=== PATIENT | male | born 1970 | race Hispanic/Latino ===

== ENCOUNTER 2017-07-25 04:30 | Inpatient (IN) | payer BC ==
--- NOTE | 2017-07-25 04:59 | ED PDOC ---
Arrival/HPI - General Chief Complaint: Shortness Of Breath Time Seen by Provider: 07/25/17 04:50 Historian: Patient - History of Present Illness Narrative History of Present Illness (Text): 07/25/17 04:59 46 year old male, whose past medical history includes Hypertension presents to the emergency department complaining of chest tightness for the past day. Patient reports he was diaphoretic at one point during the day and also reports occasional palpitations. Patient is a non-smoker and denies any drug use, but admits to chewing tobacco. He states he does have a family history of heart disease. Patient denies any fever, chills, shortness of breath, abdominal pain, nausea, vomiting, diarrhea, urinary symptoms, back pain, neck pain, headache, dizziness, or any other complaints. Time/Duration: 24 hours Symptom Onset: Gradual Symptom Course: Unchanged Activities at Onset: Light Context: Home Past Medical History - Provider Review Nursing Documentation Reviewed: Yes - Cardiac Hx Cardiac Disorders: Yes Hx Hypertension: Yes - Psychiatric Hx Substance Use: No - Surgical History Other/Comment: screws in LLE Family/Social History - Physician Review Nursing Documentation Reviewed: Yes Family/Social History: Other (Heart Disease ) Smoking Status: Never Smoked Hx Alcohol Use: Yes Frequency of alcohol use: Socially Hx Substance Use: No Allergies/Home Meds Allergies/Adverse Reactions: Allergies cat dander Adverse Reaction (Verified 07/25/17 04:41) ITCHING Review of Systems - Physician Review All systems were reviewed & negative as marked: Yes - Review of Systems Constitutional: absent: Fevers, Other (Chills) Respiratory: absent: SOB Cardiovascular: Palpitations, Other (Chest tightness) Gastrointestinal: absent: Abdominal Pain, Diarrhea, Nausea, Vomiting Genitourinary Male: absent: Dysuria, Frequency, Hematuria Musculoskeletal: absent: Back Pain, Neck Pain Neurological: absent: Headache, Dizziness Endocrine: Diaphoresis Physical Exam Vital Signs Reviewed: Yes Vital Signs Temp Pulse Resp BP Pulse Ox 07/25/17 04:50 18 07/25/17 04:41 99.6 F 99 H 22 187/117 H 97 Temperature: Afebrile Blood Pressure: Hypertensive Pulse: Regular Respiratory Rate: Normal Appearance: Positive for: Well-Appearing, Non-Toxic, Comfortable, Other (Obese ) Pain Distress: None Mental Status: Positive for: Alert and Oriented X 3 - Systems Exam Head: Present: Atraumatic, Normocephalic Pupils: Present: PERRL Extroacular Muscles: Present: EOMI Conjunctiva: Present: Normal Mouth: Present: Moist Mucous Membranes Neck: Present: Normal Range of Motion, Other (Supple) Respiratory/Chest: Present: Clear to Auscultation, Good Air Exchange. No: Respiratory Distress, Accessory Muscle Use Cardiovascular: Present: Regular Rate and Rhythm, Normal S1, S2. No: Murmurs Abdomen: No: Tenderness, Distention, Peritoneal Signs Back: Present: Normal Inspection Upper Extremity: Present: Normal Inspection. No: Cyanosis, Edema Lower Extremity: Present: Normal Inspection. No: Edema, CALF TENDERNESS Neurological: Present: GCS=15, CN II-XII Intact, Speech Normal, Motor Func Grossly Intact, Normal Sensory Function Skin: Present: Warm, Dry, Normal Color. No: Rashes Psychiatric: Present: Alert, Oriented x 3, Normal Insight, Normal Concentration Medical Decision Making ED Course and Treatment: 07/25/17 04:59 Impression: 46 year old male presents complaining of chest tightness for the past day. Patient also reports he was diaphoretic earlier and also gets occasional palpitations. Plan: -- EKG -- Labs -- Chest X-Ray -- Aspirin -- Reassess and disposition Progress Notes: EKG shows NSR at 83 BPM with normal intervals. Normal EKG. Interpreted by me. 07/25/17 05:38 CXR Impression: As read by me, no acute process. 07/25/17 05:50 Case discussed with Registered Nurse Practitioner and Dr. Fuentes who is aware and agrees with the plan. Accepts patient into hospitalist service. - Lab Interpretations Lab Results: 07/25/17 05:00 07/25/17 05:00 Lab Results 07/25/17 05:00: Sodium 143, Potassium 4.1, Chloride 103, Carbon Dioxide 28, Anion Gap 16, BUN 15, Creatinine 0.8, Est GFR ( Amer) > 60, Est GFR (Non- Af Amer) > 60, Random Glucose 209 H, Calcium 9.2, Total Bilirubin 0.3, AST 31, ALT 43, Alkaline Phosphatase 46, Lactate Dehydrogenase 598, Total Creatine Kinase 159, Troponin I 0.01, Total Protein 7.3, Albumin 4.3, Globulin 3.0, Albumin/Globulin Ratio 1.4 07/25/17 05:00: PT 11.3, INR 0.98, APTT 31.1 07/25/17 05:00: WBC 9.4, RBC 5.19, Hgb 15.2, Hct 43.4, MCV 83.6, MCH 29.3, MCHC 35.0, RDW 13.6, Plt Count 233, MPV 9.6 I have reviewed the lab results: Yes - RAD Interpretation Radiology Orders: 07/25/17 04:59 CHEST PORTABLE [RAD] Stat - EKG Interpretation Interpreted by ED Physician: Yes Type: 12 lead EKG - Medication Orders Current Medication Orders: Discontinued Medications Aspirin (Aspirin) 325 mg PO ONCE STA Stop: 07/25/17 05:00 Last Admin: 07/25/17 05:20 Dose: 325 mg Nitroglycerin (Nitro-Bid 2% Oint) 1 ea TOP ONCE STA Stop: 07/25/17 05:31 Last Admin: 07/25/17 05:40 Dose: 1 ea - Scribe Statement The provider has reviewed the documentation as recorded by the Gretta Grover Provider Scribe Attestation: All medical record entries made by the Gretta were at my direction and personally dictated by me. I have reviewed the chart and agree that the record accurately reflects my personal performance of the history, physical exam, medical decision making, and the department course for this patient. I have also personally directed, reviewed, and agree with the discharge instructions and disposition. Disposition/Present on Arrival - Present on Arrival Any Indicators Present on Arrival: No History of DVT/PE: No History of Uncontrolled Diabetes: No Urinary Catheter: No History of Decub. Ulcer: No History Surgical Site Infection Following: None - Disposition Have Diagnosis and Disposition been Completed?: Yes Diagnosis: Chest pain Disposition: HOSPITALIZED Disposition Time: 06:17 Patient Plan: Observation Condition: STABLE Discharge Instructions (ExitCare): Chest Pain (ED) Forms: [facility] ([place])
[2017-07-25 05:18] LABS: HEMOGLOBIN 15.2 g/dL (14.0-18.0); MEAN CELL VOLUME 83.6 fl (80.0-105.0); MEAN CORPUSCULAR HEMOGLOBIN 29.3 pg (25.0-35.0); MEAN PLATELET VOLUME 9.6 fl (7.0-11.0); RBC 5.19 10^6/uL (3.5-6.1); RED CELL DISTRIBUTION WIDTH 13.6 % (11.5-14.5); WHITE BLOOD COUNT 9.4 10^3/ul (4.5-11.0)
[2017-07-25 05:27] LABS: ALB/GLOB RATIO 1.4 (1.1-1.8); ALBUMIN 4.3 g/dL (3.0-4.8); ALT/SGPT 43 U/L (7-56); AST/SGOT 31 U/L (17-59); BLOOD UREA NITROGEN 15 mg/dL (7-21); CALCIUM 9.2 mg/dL (8.4-10.5); GFR AFRICAN-AMERICAN > 60; GFR NON-AFRICAN AMERICAN > 60
[2017-07-25] MEDS ORDERED: Nitroglycerin 2% Ointment Foilpak UD TOP STA (05:30)
[2017-07-25 05:39] LABS: INR 0.98 (0.93-1.08); PARTIAL THROMBOPLASTIN TIME 31.1 Seconds (25.1-36.5); PROTHROMBIN TIME 11.3 SECONDS (9.4-12.5); TROPONIN I 0.01 ng/mL
[2017-07-25 07:32] LABS: B-TYPE NATRIURETIC PEPTIDE 62.5 pg/mL (0-450)
[2017-07-25 07:38] LABS: FREE T4 0.82 ng/dL (0.78-2.19); T4 8.3 ug/dL (5.5-11.0)
--- NOTE | 2017-07-25 07:54 | RAD ---
HISTORY: pain COMPARISON: No prior. FINDINGS: LUNGS: No active pulmonary disease. PLEURA: No significant pleural effusion identified, no pneumothorax apparent. CARDIOVASCULAR: Normal. OSSEOUS STRUCTURES: No significant abnormalities. VISUALIZED UPPER ABDOMEN: Normal. OTHER FINDINGS: None. IMPRESSION: No active disease.
[2017-07-25] MEDS ORDERED: Enoxaparin 40 mg Syringe SC SCH (10:00)
[2017-07-25] MEDS: Aspirin 325 mg EC Tablets PO SCH (10:37)
--- NOTE | 2017-07-25 10:43 | CP.PCM.HP ---
<Deanne Pina - Last Filed: 07/25/17 11:30> History of Present Illness - History of Present Illness History of Present Illness: History and Physical for Dr Fuentes Service: HPI: Patient is 46 year old male with past medical history of HTN presents to [facility] [place] for chest tightness that started yesterday. Patient states that chest tightness was associated with intermittent shortness of breath. Chest pain was left sided, non-radiating. Rates the pain 4/10. He reports feeling diaphoretic with occasional palpitations. Patient also states that he has been having intermittent numbness/tingling in both hands for the past few weeks. At this time he denies headaches, dizziness, palpitations, sob, abdominal pain, urinary symptoms, changes in bowel habits. ED Course: Aspirin 325mg X 1, Nitroglycerin x 1 Allergies: Cat Dander Medications: Denies Medical History: HTN Surgical History: Ankle surgery Social History: Chews tobacco 2 cans/day for 10 years, former smoker, denies alcohol, drug use; works with [employer] Family History: Pertinent for HTN, Diabetes Mellitus, Heart Disease Present on Admission - Present on Admission Any Indicators Present on Admission: No Past Patient History - Past Social History Smoking Status: Never Smoked - CARDIAC Hx Cardiac Disorders: Yes Hx Hypertension: Yes - PSYCHIATRIC Hx Substance Use: No - SURGICAL HISTORY Other/Comment: screws in LLE Meds Allergies/Adverse Reactions: Allergies Allergy/AdvReac Type Severity Reaction Status Date / Time cat dander AdvReac ITCHING Verified 07/25/17 15:22 Physical Exam - Constitutional Appears: Well, No Acute Distress Additional comments: Obese - Head Exam Head Exam: ATRAUMATIC, NORMAL INSPECTION, NORMOCEPHALIC - Eye Exam Eye Exam: EOMI, Normal appearance Pupil Exam: NORMAL ACCOMODATION - ENT Exam ENT Exam: Mucous Membranes Moist - Neck Exam Neck exam: Positive for: Full Rom - Respiratory Exam Respiratory Exam: Clear to Auscultation Bilateral, NORMAL BREATHING PATTERN. absent: Rales, Rhonchi, Wheezes - Cardiovascular Exam Cardiovascular Exam: REGULAR RHYTHM, +S1, +S2 - GI/Abdominal Exam GI & Abdominal Exam: Normal Bowel Sounds, Soft. absent: Rebound, Rigid, Tenderness - Extremities Exam Additional comments: +2 pitting edema bilaterally - Neurological Exam Neurological exam: Alert, CN II-XII Intact, Oriented x3 Additional comments: Negative spurling, Negative tinels test - Expanded Neurological Exam Expanded Neuro motor strength exam: Left Upper Extremity: 5, Right Upper Extremity: 5, Left Lower Extremity: 5, Right Lower Extremity: 5 - Psychiatric Exam Psychiatric exam: Normal Affect, Normal Mood - Skin Skin Exam: Dry, Normal Color, Warm Results - Vital Signs Recent Vital Signs: Last Vital Signs Temp 98.2 F 07/25/17 07:30 Pulse 85 07/25/17 07:30 Resp 20 07/25/17 07:30 BP 134/85 07/25/17 07:30 Pulse Ox 96 07/25/17 07:30 - Labs Result Diagrams: 07/25/17 05:00 07/25/17 05:00 Assessment & Plan - Assessment and Plan (Free Text) Assessment: A/P: 46 year old male with past medical history of HTN presents to [facility] [place] for intermittent chest tightness with associated shortness of breath. Patient also with numbness and tingling in both hands. Chest Pain R/O ACS -Stable, afebrile -Continue Aspirin 325mg PO daily -EKG showed NSR, no ST changes -Trend troponins, f/u TSH, free T4 -UDS ordered -Echocardiogram ordered -F/U stress test -CXR showed possible widened mediastinum, CT chest ordered w/out contrast -Cardiology on consult, help appreciated Paresthesias of bilateral upper extremities -Could be due to Cervical radiculopathy vs Diabetic neuropathy -Cervical MRI ordered -F/U HgA1C Elevated Random Glucose/Metabolic Syndrome -Patient is obese, with high blood pressure, and high triglycerids -Random glucose 209 today -Will F/U HgA1C -Medium dose ISS/Accuchecks ACHS History of HTN -Lopressor 25mg PO BID -Cozaar 50mg PO daily Hypertrigyleridemia -Started on Lipitor 40mg PO daily Bilateral lower extremity edema -Started Lasix 40mg IVP Q12H -Kdur 10meq daily -Venous dopplers ordered -Daily weights/Strict I/Os Tobacco dependence -Patient is a former smoker who currently chew tobacco daily -Cessation encouraged -Risks of continuing explained to the patient GI/DVT ppx -Protonix 40mg PO BID -Lovenox 40mg SC daily Plan discussed with Dr Gina Pina DO PGY-1 <George Fuentes U - Last Filed: 07/25/17 23:13> Results - Vital Signs Recent Vital Signs: Last Vital Signs Temp 97.5 F L 07/25/17 18:00 Pulse 76 07/25/17 18:00 Resp 20 07/25/17 18:00 BP 154/101 H 07/25/17 18:00 Pulse Ox 98 07/25/17 14:16 - Labs Result Diagrams: 07/25/17 05:00 07/25/17 05:00 Labs: Laboratory Results - last 24 hr 07/25/17 07/25/17 07/25/17 11:00 11:00 11:00 POC Glucose (mg/dL) Total Creatine Kinase 143 Troponin I < 0.01 Urine Color Yellow Urine Appearance Clear Urine pH 6.0 Ur Specific [place] >= 1.030 Urine Protein Trace H Urine Glucose (UA) 250 H Urine Ketones Negative Urine Blood Negative Urine Nitrate Negative Urine Bilirubin Negative Urine Urobilinogen 0.2 Ur Leukocyte Esterase Negative Urine RBC 0 - 2 Urine WBC 1 - 3 Ur Epithelial Cells None Urine Bacteria Mod Fine Granular Casts 0 - 2 Urine Opiates Screen Negative Urine Methadone Screen Negative Ur Barbiturates Screen Negative Ur Phencyclidine Scrn Negative Ur Amphetamines Screen Negative U Benzodiazepines Scrn Negative U Oth Cocaine Metabols Negative U Cannabinoids Screen Negative Hepatitis A IgM Ab Hep Bs Antigen Hep B Core IgM Ab Hepatitis C Antibody 07/25/17 07/25/17 07/25/17 14:32 15:45 16:41 POC Glucose (mg/dL) 90 138 H Total Creatine Kinase 121 Troponin I < 0.01 Urine Color Urine Appearance Urine pH Ur Specific [place] Urine Protein Urine Glucose (UA) Urine Ketones Urine Blood Urine Nitrate Urine Bilirubin Urine Urobilinogen Ur Leukocyte Esterase Urine RBC Urine WBC Ur Epithelial Cells Urine Bacteria Fine Granular Casts Urine Opiates Screen Urine Methadone Screen Ur Barbiturates Screen Ur Phencyclidine Scrn Ur Amphetamines Screen U Benzodiazepines Scrn U Oth Cocaine Metabols U Cannabinoids Screen Hepatitis A IgM Ab Hep Bs Antigen Hep B Core IgM Ab Hepatitis C Antibody 07/25/17 07/25/17 17:00 21:38 POC Glucose (mg/dL) 132 H Total Creatine Kinase Troponin I Urine Color Urine Appearance Urine pH Ur Specific [place] Urine Protein Urine Glucose (UA) Urine Ketones Urine Blood Urine Nitrate Urine Bilirubin Urine Urobilinogen Ur Leukocyte Esterase Urine RBC Urine WBC Ur Epithelial Cells Urine Bacteria Fine Granular Casts Urine Opiates Screen Urine Methadone Screen Ur Barbiturates Screen Ur Phencyclidine Scrn Ur Amphetamines Screen U Benzodiazepines Scrn U Oth Cocaine Metabols U Cannabinoids Screen Hepatitis A IgM Ab Negative Hep Bs Antigen Negative Hep B Core IgM Ab Negative Hepatitis C Antibody Negative Attending/Attestation - Attestation I have personally seen and examined this patient.: Yes I have fully participated in the care of the patient.: Yes I have reviewed all pertinent clinical information: Yes Notes (Text): Please see/read my dictated notes.
--- NOTE | 2017-07-25 10:59 | CARD ---
APPROVED REPORT EKG Measurement Heart [id number] <Conclusion> Normal sinus rhythm Normal ECG
[2017-07-25] MEDS: Potassium Chloride 10 mEq ER Tab PO SCH (11:13)
[2017-07-25 11:24] LABS: URINE BILIRUBIN NEGATIVE (NEGATIVE); URINE BLOOD NEGATIVE (NEGATIVE); URINE GLUCOSE (UA) 250 mg/dL (NEGATIVE); URINE LEUKOCYTE ESTERASE NEGATIVE Leu/uL (NEGATIVE); URINE PROTEIN TRACE mg/dL (<30 mg/dL); URINE UROBILINOGEN 0.2 E.U./dL (<1 E.U./dL)
[2017-07-25] MEDS: Insulin Lispro (humaLOG) MEDIUM Coverage SC SCH ×2 (11:30→16:50)
[2017-07-25 11:31] LABS: URINE APPEARANCE CLEAR (CLEAR); URINE COLOR YELLOW (YELLOW)
[2017-07-25 11:35] LABS: BARBITURATES, UR NEGATIVE (NEGATIVE); BENZODIAZEPINES, UR NEGATIVE (NEGATIVE); OPIATES, UR NEGATIVE (NEGATIVE)
[2017-07-25 11:37] LABS: URINE BACTERIA MOD (NEG); URINE RBC 0 - 2 /hpf (0-2)
[2017-07-25 11:38] LABS: URINE FINE GRANULAR CAST 0 - 2 /hpf (0-2)
[2017-07-25 11:42] LABS: TROPONIN I < 0.01 ng/mL
[2017-07-25 11:49] LABS: PHENCYCLIDINE, UR NEGATIVE (NEGATIVE)
--- NOTE | 2017-07-25 12:22 | CT ---
PROCEDURE: CT Chest without contrast HISTORY: widened mediastinum? COMPARISON: None. TECHNIQUE: Contiguous axial images were obtained through the chest without intravenous contrast enhancement. Sagittal and coronal reconstructions were performed. Radiation dose (DLP): 949.49 mGy-cm. This CT exam was performed using one or more of the following dose reduction techniques: Automated exposure control, adjustment of the mA and/or kV according to patient size, and/or use of iterative reconstruction technique. FINDINGS: LUNGS: The lungs are well inflated. There is linear atelectasis in the inferior lingula. No focal consolidation, mass or nodule. There are no endobronchial lesions. MEDIASTINUM: There is aneurysm of the ascending aorta measuring 4.8 x 4.6 cm. The heart is normal in size. No pericardial effusion. No bulky mediastinal lymphadenopathy. PLEURA: No pleural fluid. No pneumothorax. BONES: No fracture. No destructive lesion. Within normal limits for the patient's age. UPPER ABDOMEN: Both adrenal glands are normal. No cholelithiasis. There is a 5 mm nonobstructing stone in the upper pole of the left kidney. OTHER FINDINGS: None. IMPRESSION: 1. Aneurysm of the ascending aorta measuring 4.8 x 4.6 cm. 2. Linear atelectasis in the inferior lingula. No consolidation, pleural effusion or pneumothorax.
--- NOTE | 2017-07-25 14:13 | US ---
HISTORY: Leg pain and swelling. Evaluate for DVT PHYSICIAN(S): Vidal Manriquez MD. TECHNIQUE: Duplex sonography and color-flow Doppler with graded compression were used to evaluate the deep venous systems of both lower extremities. The exam is very limited by body habitus and edema. FINDINGS: There is subacute occlusive thrombus in the mid to distal right femoral vein, popliteal vein, visualized right tibial veins. The proximal right femoral vein and right common femoral vein are patent and compressible. There is no sonographic evidence for deep venous thrombosis in the visualized segments of the left lower extremity. IMPRESSION: Subacute occlusive thrombus in the mid to distal right femoral vein and popliteal vein. Very limited study.
--- NOTE | 2017-07-25 15:51 | CON ---
DATE: 07/25/2017 CARDIOLOGY CONSULTATION HISTORY: The patient is a 46-year-old male who presents with substernal chest discomfort occurring at rest. The patient's cardiac risk factors include morbid obesity, tobacco use of the chewing time, but not inhalation. He has a strong family history for CAD with an uncle with myocardial infarction and blood relatives with stents in the past. He denies diabetes mellitus. SOCIAL HISTORY: Tobacco chewing, but no smoking. 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 REVIEW OF SYSTEMS: A 14-point review of systems was reviewed in detail. No previous cardiac symptoms. No dyspnea. No edema in the lower extremities. No peptic ulcer disease. PHYSICAL EXAMINATION: VITAL SIGNS: Blood pressure 134/85, the heart rate is in the 80s. NECK: Negative JVD. LUNGS: Without rales. HEART: S1 and S2. EXTREMITIES: Without edema. EKG shows no acute changes. LABORATORY DATA: Hemoglobin is 15.2. Chemistries: BUN and creatinine are normal. Glucose is 209. Triglycerides 197. First troponin is negative. IMPRESSION: 1. New-onset angina. 2. High probability for coronary artery disease. 3. So far no evidence for acute coronary syndrome. 4. Diabetes mellitus. 5. Hypertension. 6. Obesity. 7. Strong family history for coronary artery disease. Given these findings, I have discussed with the patient the diagnostic options of stress test versus cardiac catheterization. Risks and benefits have been discussed on both. The patient would like to stay with the conservative route first. We will arrange for a stress test in the morning. Vidal Tavarez MD
--- NOTE | 2017-07-25 16:12 | CP.PCM.CON ---
History of Present Illness - History of Present Illness History of Present Illness: Vascular Surgery Consult for Dr. Saxena Reason for Consult: TAAA measuring 4.8 cm x 4.6 cm 46 M with PMH of HTN presents to [facility] [place] for chest pain. Vascular Surgery was consulted for CT chest findings of TAAA measuring 4.8 cm x 4.6 cm. Patient was also found to have DVT in right distal femoral/popliteal vein. Patient states that he had chest pain since yesterday while at work. He states that he had associated shortness of breath, palpitations and diaphoresis. He rates the pain as mild. He describes pain as constant and tightness like a band around torso with the worst being in the left chest without radiation. Denies any specific aggravating or alleviating factors. Admits to numbness/tingling in both hands and bilateral pedal edema. Denies headache, vertigo, syncope, dizziness/ lightheaded, abdominal pain, nausea/vomtining, diarrhea, constipaitoin, incontinence, urinary symptoms. PMH: HTN Meds: Denies Allergy: Cats PSH: L Ankle ORIF FH: Pertinent for HTN, Diabetes Mellitus, Heart Disease Social History: uses 2 cans/day of chewing tobacco for 10 years, former smoker, denies EtOH/illicit drug use, works on the [employer] Review of Systems - Review of Systems All systems: reviewed and no additional remarkable complaints except (as per HPI ) Past Patient History - Past Social History Smoking Status: Never Smoked - CARDIAC Hx Cardiac Disorders: Yes Hx Hypertension: Yes - PSYCHIATRIC Hx Substance Use: No - SURGICAL HISTORY Other/Comment: screws in LLE Meds Allergies/Adverse Reactions: Allergies Allergy/AdvReac Type Severity Reaction Status Date / Time cat dander AdvReac ITCHING Verified 07/25/17 15:22 - Medications Medications: Current Medications Aspirin (Ecotrin) 325 mg PO DAILY [facility] Last Admin: 07/25/17 10:37 Dose: 325 mg Atorvastatin Calcium (Lipitor) 40 mg PO DAILY [facility] Last Admin: 07/25/17 10:37 Dose: 40 mg Enoxaparin Sodium (Lovenox) 160 mg SC Q12H [facility] PRN Reason: Protocol Furosemide (Lasix) 40 mg IVP DAILY [facility] Last Admin: 07/25/17 11:13 Dose: 40 mg Insulin Human Lispro (Humalog Med) 0 units SC [facility] PRN Reason: Protocol Last Admin: 07/25/17 11:30 Dose: Not Given Losartan Potassium (Cozaar) 50 mg PO DAILY [facility] Last Admin: 07/25/17 10:37 Dose: 50 mg Metoprolol Tartrate (Lopressor) 25 mg PO BID [facility] Last Admin: 07/25/17 10:38 Dose: 25 mg Pantoprazole Sodium (Protonix Ec Tab) 40 mg PO 0600,1600 [facility] Potassium Chloride (Klor-Con 10) 10 meq PO DAILY [facility] Last Admin: 07/25/17 11:13 Dose: 10 meq Physical Exam - Constitutional Appears: No Acute Distress - Head Exam Head Exam: ATRAUMATIC, NORMOCEPHALIC - Eye Exam Eye Exam: EOMI, Normal appearance Pupil Exam: PERRL - ENT Exam ENT Exam: Mucous Membranes Moist - Neck Exam Neck exam: Positive for: Normal Inspection - Respiratory Exam Respiratory Exam: Clear to Auscultation Bilateral, NORMAL BREATHING PATTERN - Cardiovascular Exam Cardiovascular Exam: RRR, +S1, +S2. absent: Diastolic murmur, Systolic Murmur Additional comments: no aortic murmurs appreciated on auscultation - GI/Abdominal Exam GI & Abdominal Exam: Normal Bowel Sounds, Soft. absent: Distended, Firm, Guarding, Hernia, Rebound, Rigid, Tenderness - Extremities Exam Extremities exam: Positive for: normal capillary refill, pedal edema (bilateral 2+), pedal pulses present. Negative for: calf tenderness - Back Exam Back exam: absent: CVA tenderness (L), CVA tenderness (R) - Neurological Exam Neurological exam: Alert, CN II-XII Intact, Oriented x3 - Psychiatric Exam Psychiatric exam: Normal Affect, Normal Mood - Skin Skin Exam: Dry, Intact, Warm Additional comments: R foot has eczematous looking plaque on heel and ankle Results - Vital Signs Recent Vital Signs: Last Vital Signs Temp 98 F 07/25/17 14:16 Pulse 82 07/25/17 14:16 Resp 20 07/25/17 14:16 BP 140/78 07/25/17 14:16 Pulse Ox 98 07/25/17 14:16 - Labs Result Diagrams: 07/25/17 05:00 07/25/17 05:00 Labs: Laboratory Results - last 24 hr 07/25/17 07/25/17 07/25/17 11:00 11:00 11:00 POC Glucose (mg/dL) Total Creatine Kinase 143 Troponin I < 0.01 Urine Color Yellow Urine Appearance Clear Urine pH 6.0 Ur Specific [place] >= 1.030 Urine Protein Trace H Urine Glucose (UA) 250 H Urine Ketones Negative Urine Blood Negative Urine Nitrate Negative Urine Bilirubin Negative Urine Urobilinogen 0.2 Ur Leukocyte Esterase Negative Urine RBC 0 - 2 Urine WBC 1 - 3 Ur Epithelial Cells None Urine Bacteria Mod Fine Granular Casts 0 - 2 Urine Opiates Screen Negative Urine Methadone Screen Negative Ur Barbiturates Screen Negative Ur Phencyclidine Scrn Negative Ur Amphetamines Screen Negative U Benzodiazepines Scrn Negative U Oth Cocaine Metabols Negative U Cannabinoids Screen Negative 07/25/17 07/25/17 14:32 15:45 POC Glucose (mg/dL) 90 Total Creatine Kinase 121 Troponin I Urine Color Urine Appearance Urine pH Ur Specific [place] Urine Protein Urine Glucose (UA) Urine Ketones Urine Blood Urine Nitrate Urine Bilirubin Urine Urobilinogen Ur Leukocyte Esterase Urine RBC Urine WBC Ur Epithelial Cells Urine Bacteria Fine Granular Casts Urine Opiates Screen Urine Methadone Screen Ur Barbiturates Screen Ur Phencyclidine Scrn Ur Amphetamines Screen U Benzodiazepines Scrn U Oth Cocaine Metabols U Cannabinoids Screen Assessment & Plan - Assessment and Plan (Free Text) Assessment: 46 M who presents with CT findings of TAAA measuring 4.8 x 4.6 cm and DVT in Right distal femoral/popliteal vein -[place] lovenox -f/u Cardio, Stress test in AM -Will continue to follow patient -Further recommendations as per Dr. Hemanth De La Cruz PGY1 - Date & Time Date: 07/25/17 Time: 16:00
[2017-07-25] MEDS ORDERED: Enoxaparin 80 mg Syringe SC SCH (16:15)
[2017-07-25 16:17] LABS: TROPONIN I < 0.01 ng/mL
[2017-07-25] MEDS: Enoxaparin 150 mg Syringe SC SCH (16:54)
[2017-07-25] MEDS: Pantoprazole 40 mg EC Tab PO SCH (16:55)
[2017-07-25 17:12] VITALS: BMI 46.2
[2017-07-25] MEDS ORDERED: Pneumococcal 23-Valent Vaccine IM ONE (17:12)
[2017-07-25 18:41] VITALS: RESP 20
[2017-07-25 21:40] LABS: HEPATITIS B SURFACE AG Negative (NEGATIVE)
[2017-07-25 21:46] LABS: HEPATITIS A IGM NEGATIVE (NEGATIVE); HEPATITIS B CORE AB NEGATIVE (NEGATIVE)
[2017-07-25 21:58] LABS: HEPATITIS C ANTIBODY NEGATIVE (NEGATIVE)
--- NOTE | 2017-07-26 03:44 | HP ---
DATE OF EXAM: 07/25/2017 HISTORY OF PRESENT ILLNESS: The patient is a 46-year-old morbidly obese male presented to the emergency room with complains of chest pain, shortness of breath, bilateral upper extremity numbness and worsening snoring according to the patient's family and patient came to the emergency room as a walk-in complaining of increasing and intermittent shortness of breath and chest pain, bilateral upper extremity numbness, leg swelling was also noted. REVIEW OF SYSTEMS: A 13-system review was done, pertinent positive and negative dictated above. CODE STATUS: Full code. LIVING WILL ADVANCE DIRECTIVE: None. Height is 6 feet 3 inches. Weight is 370. BMI is 46.2. HOME MEDICATIONS: None. SOCIAL HISTORY: Positive for occasional alcohol, and smoking. FAMILY HISTORY: Positive for hypertension and diabetes. OCCUPATIONAL HISTORY: Patient is a grain combine driver. PAST MEDICAL HISTORY: Significant for hypertension, hyperlipidemia and questionable heart disorder, not specified; history of left ankle surgery with screws, history of tobacco chewing, history of alcohol occasional use, history of smoking. The patient's medications, none. PHYSICAL EXAMINATION: GENERAL: The patient was seen and examined in the ER, bed 9. Patient's family is at bedside. Patient is seen sitting up in the stretcher. Patient is morbidly obese. VITAL SIGNS: T-max 99.6-98. Telemetry shows sinus rhythm, heart rate 99, 85, 82, 76; blood pressure 187/117, 134/ 85, 164/97, 166/90, 140/78, 154/101; respiration 18 to 20 and O2 sat is 97%, 96%, 98%. HEENT: Head examination, normocephalic and atraumatic. HEENT examination shows pink conjunctivae. Anicteric sclerae. Crowded and narrow oropharynx noted. NECK: No jugular venous distention. CHEST: Symmetrical. LUNGS: Show decreased breath sounds and crackles, and creps and fine rales are noted. CARDIOVASCULAR: S1, S2. Positive systolic murmur at left sternal border, right second intercostal space, left second intercostal space. ABDOMEN: Morbidly obese. GENITALIA: Male. RECTAL: Examination is deferred. EXTREMITIES: Show 2+ pitting edema of the right lower extremity and 1+ pitting edema of the left lower extremity. MUSCULOSKELETAL: Shows a body mass index of 46.2. NEUROLOGIC: The patient is alert, awake, oriented x3. Cranial nerves II through XII limited. Gait examination is not tested. VASCULAR: Difficult to palpate pulses because of the pitting edema. PSYCHIATRIC: Examination is negative. DIAGNOSTICS: WBC 9.4, hemoglobin and hematocrit 15.2 and 43.4, platelet 223. PT/PTT 11.3/31.1. D-dimer is 236. Sodium 143, potassium 4.1, chloride 103, CO2 of 28, anion gap 16, BUN 15, creatinine 0.8, GFR greater than 60, glucose 209, hemoglobin A1c 7.2. LFTs are normal. Troponin first set is negative. BNP 62, cholesterol 150, triglyceride 197, LDL 87, HDL 40. TSH 1.12, T4 is 8.3. Fingerstick blood sugar 138 and 90. Urine pH 6, specific gravity greater than 1.030, trace protein, glucose 250, moderate bacteria. Urine drug screen was negative. Patient had a chest x-ray done, which was reviewed. Official report says no active disease, but when I reviewed the chest x-ray, there was a question of widened mediastinum. I have requested the Radiology to review it. Patient had a venous Doppler done because of the bilateral lower extremity, which shows subacute occlusive thrombus in the [id number] right femoral vein, popliteal vein and right tibial vein and with limited study. The patient was sent for a stat CT of the chest, which shows lingular atelectasis with ascending aortic aneurysm 4.8 x 4.6. EKG done in the emergency room shows sinus rhythm, questionable Q wave in III. IMPRESSION AND PLAN: 1. Chest pain, shortness of breath, bilateral upper extremity numbness, exact etiology unclear. 2. Uncontrolled hypertension. 3. Transient tachycardia. 4. Super morbid obesity with elevated body mass index of 46.2. 5. Hyperglycemia with new-onset diabetes mellitus with hemoglobin A1c of 7.2. 6. Hypertriglyceridemia. 7. Trace proteinuria, glycosuria and moderate bacteriuria. 8. Right femoral vein, right popliteal vein and right tibial vein subacute occlusive thrombosis. 9. Inferior lingular linear atelectasis. 10. A 4.8 x 4.6 cm ascending aortic aneurysm. 11. Left renal 5 mm non-obstructive uropathy and nephrolithiasis. 12. Bilateral lower extremity venous stasis. 13. Morbid obesity. 14. History of hypertension, hyperlipidemia and questionable heart problems, etiology undetermined. 15. History of left ankle surgery. 16. Questionable cervical radiculopathy with bilateral upper extremity numbness. 17. History of nicotine and alcohol use. 18. Possible angina. 19. Family history of coronary artery disease. 20. History of hypertension, hyperlipidemia, not on any medications. 21. Bilateral upper extremity numbness and paresthesias, possible cervical radiculopathy. 22. Possible metabolic syndrome with obesity, hypertension, hyperglycemia, diabetes mellitus. Plan at this time, patient has been ordered repeat lab work. Patient has been ordered serial labs. Patient has been ordered HIV, hepatitis panel because of body tattooing and piercing. Cardiology consultation and Vascular Surgery consultation ordered. Patient has been ordered aspirin 325 daily, Cozaar 50 mg daily, Humalog medium dose sliding scale coverage, Lasix 40 mg IV daily, K-Dur 10 mEq daily, Lipitor 40 mg daily, Lopressor 25 twice a day, Lovenox started at therapeutic doses 150 mg subcu every 12 hours, Protonix 40 mg daily. MRI of the cervical spine ordered. Repeat EKG ordered. Echo with Doppler ordered. Heart-healthy diet ordered. Patient will be ordered family living educator evaluation. Patient will be ordered fingerstick blood sugar, out of bed. HARMONY stockings, SCDs, daily weights, occupational therapy, physical therapy all ordered. Patient's condition, diagnoses, treatment plan, management plan and need for further diagnostic therapeutic intervention were discussed and explained with the patient and the patient's next of kin at length who presented in the room in the emergency room. I have explained that patient at this time needs to be hospitalized and the patient's further management will be dependent upon the patient's clinical condition, hemodynamic status and as per the patient's response to therapeutic intervention and as per recommendation by all the physician involved in the care of the patient. The patient was seen and examined with the medical administrator at length. All questions concerned answered. Dictated and electronically signed, not read. George Fuentes MD
[2017-07-26] MEDS: Pantoprazole 40 mg EC Tab PO SCH ×2 (05:39→17:40)
[2017-07-26] MEDS: Enoxaparin 150 mg Syringe SC SCH ×2 (05:40→17:40)
[2017-07-26 07:12] LABS: BASO # 0.03 K/mm3 (0.0-2.0); BASO % 0.3 % (0.0-3.0); EOS # 0.4 (0.0-0.7); EOS % 4.8 % (1.5-5.0); GRAN # 4.92 (1.4-6.5); GRAN % 56.7 % (50.0-68.0); HEMOGLOBIN 15.3 g/dL (14.0-18.0); LYMPH # 2.7 (1.2-3.4); MEAN CELL VOLUME 83.9 fl (80.0-105.0); MEAN CORPUSCULAR HGB CONC 34.5 g/dl (31.0-37.0); MEAN PLATELET VOLUME 9.3 fl (7.0-11.0); MONO # 0.6 (0.1-0.6); MONO % 7.2 % (1.0-6.0); RBC 5.28 10^6/uL (3.5-6.1); RED CELL DISTRIBUTION WIDTH 13.7 % (11.5-14.5); WHITE BLOOD COUNT 8.7 10^3/ul (4.5-11.0)
[2017-07-26 07:35] LABS: ALB/GLOB RATIO 1.3 (1.1-1.8); ALBUMIN 3.9 g/dL (3.0-4.8); ALT/SGPT 51 U/L (7-56); AST/SGOT 25 U/L (17-59); BILIRUBIN,DIRECT 0.1 mg/dL (0.0-0.4); BLOOD UREA NITROGEN 18 mg/dL (7-21); CALCIUM 8.9 mg/dL (8.4-10.5); GFR AFRICAN-AMERICAN > 60; GFR NON-AFRICAN AMERICAN > 60
[2017-07-26] MEDS ORDERED: Aminophylline 25 mg/ml Inj ONE (07:37)
[2017-07-26] MEDS: Insulin Lispro (humaLOG) MEDIUM Coverage SC SCH ×3 (07:38→17:32)
--- NOTE | 2017-07-26 09:23 | PN ---
DATE: 07/26/2017 CARDIOLOGY FOLLOWUP SUBJECTIVE: The patient has been chest pain free since she has been in the hospital. PHYSICAL EXAMINATION: VITAL SIGNS: Blood pressure is 148/93, heart rate is in the 70s. NECK: Negative JVD. LUNGS: Without rales. HEART: Reveal S1, S2. EXTREMITIES: Without edema. LABORATORY DATA: Troponins are negative x2. The glucose is 135. IMPRESSION: 1. New-onset angina. 2. High probability for coronary artery disease. 3. Diabetes mellitus. 4. Obesity. 5. Hypertension. Given these findings, the patient was unable to walk on a treadmill today. A Lexiscan was done, the results would not be available until the morning. Vidal Tavarez MD
[2017-07-26] MEDS: Potassium Chloride 10 mEq ER Tab PO SCH (10:01)
[2017-07-26] MEDS: Aspirin 325 mg EC Tablets PO SCH (10:01)
--- NOTE | 2017-07-26 10:20 | CP.PCM.PN ---
Subjective - Date & Time of Evaluation Date of Evaluation: 07/26/17 Time of Evaluation: 10:19 - Subjective Subjective: Medicine Progress Note - Dr Fuentes Service: Patient seen and examined at bedside. Per nursing no acute events overnight. Patient is NPO for stress test this morning. Patient is doing well, offers no complaints at this time. Denies headaches, dizziness, cp, palpitations, sob, abdominal pain, urinary symptoms. Objective - Vital Signs/Intake and Output Vital Signs (last 24 hours): Temp Pulse Resp BP Pulse Ox 97.6 F 87 20 181/107 H 98 07/26/17 06:00 07/26/17 10:01 07/26/17 06:00 07/26/17 10:01 07/26/17 06:00 Intake and Output: 07/26/17 07/26/17 06:59 18:59 Intake Total 240 Balance 240 - Medications Medications: Current Medications Aspirin (Ecotrin) 325 mg PO DAILY [facility] Last Admin: 07/26/17 10:01 Dose: 325 mg Atorvastatin Calcium (Lipitor) 40 mg PO DAILY [facility] Last Admin: 07/26/17 10:01 Dose: 40 mg Enoxaparin Sodium (Lovenox) 150 mg SC Q12H [facility] PRN Reason: Protocol Last Admin: 07/26/17 05:40 Dose: 150 mg Furosemide (Lasix) 40 mg IVP DAILY [facility] Last Admin: 07/26/17 10:00 Dose: 40 mg Insulin Human Lispro (Humalog Med) 0 units SC AC [facility] PRN Reason: Protocol Last Admin: 07/26/17 07:38 Dose: Not Given Losartan Potassium (Cozaar) 50 mg PO DAILY [facility] Last Admin: 07/26/17 10:01 Dose: 50 mg Metoprolol Tartrate (Lopressor) 25 mg PO BID [facility] Last Admin: 07/26/17 10:01 Dose: 25 mg Pantoprazole Sodium (Protonix Ec Tab) 40 mg PO 0600,1600 [facility] Last Admin: 07/26/17 05:39 Dose: Not Given Potassium Chloride (Klor-Con 10) 10 meq PO DAILY [facility] Last Admin: 07/26/17 10:01 Dose: 10 meq - Labs Labs: 07/26/17 06:30 07/26/17 06:30 PT 11.3 SECONDS (9.4-12.5) 07/25/17 05:00 INR 0.98 (0.93-1.08) 07/25/17 05:00 APTT 31.1 Seconds (25.1-36.5) 07/25/17 05:00 - Additional Findings Additional findings: - Constitutional Appears: Well, No Acute Distress Additional comments: Obese - Head Exam Head Exam: ATRAUMATIC, NORMAL INSPECTION, NORMOCEPHALIC - Eye Exam Eye Exam: EOMI, Normal appearance Pupil Exam: NORMAL ACCOMODATION - ENT Exam ENT Exam: Mucous Membranes Moist - Neck Exam Neck exam: Positive for: Full Rom - Respiratory Exam Respiratory Exam: Clear to Auscultation Bilateral, NORMAL BREATHING PATTERN. absent: Rales, Rhonchi, Wheezes - Cardiovascular Exam Cardiovascular Exam: REGULAR RHYTHM, +S1, +S2 - GI/Abdominal Exam GI & Abdominal Exam: Normal Bowel Sounds, Soft. absent: Rebound, Rigid, Tenderness - Extremities Exam Additional comments: +2 pitting edema bilaterally - Neurological Exam Neurological exam: Alert, CN II-XII Intact, Oriented x3 - Expanded Neurological Exam Expanded Neuro motor strength exam: Left Upper Extremity: 5, Right Upper Extremity: 5, Left Lower Extremity: 5, Right Lower Extremity: 5 - Psychiatric Exam Psychiatric exam: Normal Affect, Normal Mood - Skin Skin Exam: Dry, Normal Color, Warm Assessment and Plan - Assessment and Plan (Free Text) Assessment: A/P: 46 year old male with past medical history of HTN [place] [facility] chest tightness with associated shortness of breath. Patient also with numbness and tingling in both hands. Chest Pain R/O ACS -Stable, afebrile -Continue Aspirin 325mg PO daily -EKG showed NSR, no ST changes -Troponins negative x 3, TSH, free T4 within normal limits, UDS negative -Echocardiogram preliminary read LVEF 57%, official report pending -Stress test completed, official report pending -CXR showed possible widened mediastinum, CT chest showed Ascending aortic aneurysm -Cardiology on consult, help appreciated Ascending Aortic Aneurysm -CT chest showed Ascending Aorta Aneurysm 4.8x4.6cm -Vascular surgery consulted, help appreciated -Maintain tight BP control Paresthesias of bilateral upper extremities -Could be due to Cervical radiculopathy vs Diabetic neuropathy -Cervical MRI ordered -HgA1C 7.2 Newly Diagnosed Diabetes Mellitus/Metabolic Syndrome -Patient is obese, with high blood pressure, and high triglycerides -HgA1C 7.2 -Medium dose ISS/Accuchecks ACHS -Counselled on weight lose and diet modification -Shingles Roofer referral placed History of HTN -Lopressor 25mg PO BID, Increased Cozaar 100mg PO daily -Lasix 40mg IVP daily -Hydralazine 10mg Q6H IVP prn Hypertrigyleridemia -Lipitor 40mg PO daily Bilateral lower extremity edema/RLE DVT -Continue Lasix 40mg IVP daily -Kdur 10meq daily -Daily weights/Strict I/Os -Venous dopplers showed subacute occlusive thrombus in mid to distal right femoral vein and popliteal vein -Patient on Therapeutic Lovenox -Hypercoaguable workup ordered -Patient will need to be discharged on PO anticoagulation -Patient has positive family history of cancer Left Lingular linear atelectasis -Activity: OOB to chair Tobacco dependence -Patient is a former smoker who currently chew tobacco daily -Cessation encouraged -Risks of continuing explained to the patient Morbid Obesity -BMI 46.2 -Counselled on weight loss and diet modification -Patient to consider possible bariatric surgery in the future GI/DVT ppx -Protonix 40mg PO BID -Lovenox 150mg SC BID Plan discussed with Dr Gnia Pina DO PGY-1
--- NOTE | 2017-07-26 11:16 | CP.PCM.PN ---
Subjective - Date & Time of Evaluation Date of Evaluation: 07/26/17 Time of Evaluation: 11:14 - Subjective Subjective: Vascular surgery progress note for Dr. Celeste Aceves, PGY-1 Pt S & E at bedside 1000 Pt sitting at bedside, reports normal BM today, headache. Denies CP, N & V, F & C, chest pain, other complaints. Objective - Vital Signs/Intake and Output Vital Signs (last 24 hours): Temp Pulse Resp BP Pulse Ox 97.6 F 87 20 181/107 H 98 07/26/17 06:00 07/26/17 10:01 07/26/17 06:00 07/26/17 10:01 07/26/17 06:00 Intake and Output: 07/26/17 07/26/17 06:59 18:59 Intake Total 240 Balance 240 - Medications Medications: Current Medications Aspirin (Ecotrin) 325 mg PO DAILY [facility] Last Admin: 07/26/17 10:01 Dose: 325 mg Atorvastatin Calcium (Lipitor) 40 mg PO DAILY [facility] Last Admin: 07/26/17 10:01 Dose: 40 mg Enoxaparin Sodium (Lovenox) 150 mg SC Q12H [facility] PRN Reason: Protocol Last Admin: 07/26/17 05:40 Dose: 150 mg Furosemide (Lasix) 40 mg IVP DAILY [facility] Last Admin: 07/26/17 10:00 Dose: 40 mg Hydralazine HCl (Apresoline) 10 mg IVP Q6 [facility] PRN Reason: FORSBP>=170MMHG&/ORDBP>=95MMHG Insulin Human Lispro (Humalog Med) 0 units SC AC [facility] PRN Reason: Protocol Last Admin: 07/26/17 07:38 Dose: Not Given Losartan Potassium (Cozaar) 100 mg PO DAILY [facility] Metoprolol Tartrate (Lopressor) 25 mg PO BID [facility] Last Admin: 07/26/17 10:01 Dose: 25 mg Pantoprazole Sodium (Protonix Ec Tab) 40 mg PO 0600,1600 [facility] Last Admin: 07/26/17 05:39 Dose: Not Given Potassium Chloride (Klor-Con 10) 10 meq PO DAILY [facility] Last Admin: 07/26/17 10:01 Dose: 10 meq - Labs Labs: 07/26/17 06:30 07/26/17 06:30 PT 11.3 SECONDS (9.4-12.5) 07/25/17 05:00 INR 0.98 (0.93-1.08) 07/25/17 05:00 APTT 31.1 Seconds (25.1-36.5) 07/25/17 05:00 - Constitutional Appears: Non-toxic, No Acute Distress - Head Exam Head Exam: ATRAUMATIC, NORMAL INSPECTION, NORMOCEPHALIC - Eye Exam Eye Exam: EOMI, Normal appearance - ENT Exam ENT Exam: Mucous Membranes Moist, Normal Exam - Neck Exam Neck Exam: Full ROM, Normal Inspection - Respiratory Exam Respiratory Exam: NORMAL BREATHING PATTERN - Cardiovascular Exam Cardiovascular Exam: REGULAR RHYTHM, +S1, +S2 - GI/Abdominal Exam GI & Abdominal Exam: Soft. absent: Distended (morbidly obese), Firm, Guarding, Rigid, Tenderness - Extremities Exam Extremities Exam: Normal Inspection. absent: Pedal Edema - Neurological Exam Neurological Exam: Alert, Awake, CN II-XII Intact, Oriented x3 - Psychiatric Exam Psychiatric exam: Normal Affect, Normal Mood - Skin Skin Exam: Dry, Intact, Normal Color, Warm Assessment and Plan - Assessment and Plan (Free Text) Assessment: 47M w/incidental finding of TAAA 4.8 cm x 4.6 cm & DVT in R distal femoral/ popliteal vein Plan: Cont therapeutic anticoagulation FU echo report FU stress test report Further recs pending cardiac reports Will DW attending [place], PGY-1
--- NOTE | 2017-07-26 14:08 | PN ---
DATE: 07/26/2017 SUBJECTIVE: The patient is seen in room 268, bed 2. The patient's girlfriend is in the room with him. The patient is seen lying in the bed. The patient was made to sit up. The patient is alert, awake, responsive. The patient's symptoms have significantly resolved since admission. Overnight nurse's notes were reviewed. The patient rested and slept well overnight. The patient has undergone stress test and echocardiogram. PHYSICAL EXAMINATION: VITAL SIGNS: T-max is 97.6. Telemetry shows sinus rhythm, heart rate in the 70s. Respiration is 20. The patient's blood pressure is elevated, it was transiently elevated yesterday, it went up to 154/101, down to 152/94, 148/93, 181/107, down to 165/99 and 152/86. Respiration is 20, oxygen saturation is 97-98%. HEENT: Head examination normocephalic, atraumatic. HEENT examination shows pink conjunctivae. Anicteric sclerae. No oropharyngeal lesion. Neck is short and supple. Crowded oropharynx is noted. No neck rigidity. Positive ear piercing and skin tattooing noted. CARDIOVASCULAR: S1, S2. Regular rhythm. Positive systolic murmur, right second intercostal space, left second intercostal space, left sternal border. LUNGS: Shows decreased breath sound at the bases, left more than the right. ABDOMEN: Obese, protuberant. Positive bowel sound. GENITALIA: Male. RECTAL: Deferred. EXTREMITIES: Still shows swelling of the lower extremity, but decreasing pitting edema of the lower extremity, right more than the left. MUSCULOSKELETAL: Shows a body mass index of greater than 46. Cranial nerves II through XII limited. Gait examination is not tested. PSYCHIATRIC: Not applicable. DIAGNOSTICS: On 07/26/2017, WBC 8.7, hemoglobin and hematocrit 15.3 and 44.3, platelet 207. Sodium 143, potassium 4, chloride 102, CO2 of 27, anion gap 19, BUN 18, creatinine 0.9, GFR greater than 60. Glucose 132, 135, 132, 138. Calcium 8.9, phosphorus 3.9, magnesium 1.7. LFTs are normal. Troponin all three sets are negative. Thyroid panel is negative. Urinalysis shows trace protein, 250 glucose, moderate bacteria. Drug screen is negative. Hepatitis A, B, C serologies and HIV-1 and 2 fourth generation is negative. The patient's CT of the chest was noted. Echocardiogram is done, the results are pending. The patient had a myocardial stress test done, the results of which are pending. IMPRESSION AND PLAN: 1. Questionable and possible angina with symptoms of chest pain, shortness of breath and bilateral upper extremity numbness. 2. Uncontrolled accelerated hypertension. 3. Transient tachycardia. 4. Super morbid obesity with elevated body mass index. 5. New-onset type 2 diabetes mellitus with hemoglobin A1c of 7.2. 6. Hypertriglyceridemia. 7. Trace proteinuria, glycosuria and moderate bacteriuria. 8. Right femoral vein, right popliteal vein and right tibial vein subacute occlusive thrombosis. 9. Inferior lingular linear atelectasis. 10. 4.8 x 4.6 cm ascending aortic aneurysm. 11. Morbid obesity. 12. Uncontrolled hypertension. 13. Bilateral lower extremity venous stasis. 14. History of snoring and possible history of sleep apnea. 15. Hyperglycemia. 16. Hypertriglyceridemia. 17. Left renal 5 mm nonobstructing uropathy. 18. Left ventricular ejection fraction greater than 65%. 19. Hypertensive cardiovascular disease. 20. Incidental thoracic aortic aneurysm. 21. Bilateral upper extremity numbness and paresthesias. Questionable possible cervical disk disease versus diabetic neuropathy. 22. Possible metabolic syndrome. 23. Nicotine dependence. Plan at this time, serial labs ordered. Current consultation, cardiology and vascular surgery. Current medications: Hydralazine 10 mg IV every six p.r.n. for systolic blood pressure greater than or equal to 170 and diastolic blood pressure greater than or equal to 95 mmHg. Cozaar increased to 100 mg daily, Ecotrin 325 daily, Humalog medium-dose sliding scale coverage, K-Dur 10 mEq daily, Lasix 40 mg IV daily, Lipitor 40 mg daily, Lopressor 25 mg twice a day, Lovenox 150 mg subcu every 12, Protonix 40 mg daily. MRI of the cervical spine pending. Repeat EKG pending. Heart-healthy diet ordered. Out of bed, thromboembolic disease stocking, sequential compression device, occupational therapy, physical therapy have been ordered. The patient has been ordered autoimmune and hypercoagulable workup at this time. The patient was explained about the details of the patient's medical condition. Diagnostic test results were extensively explained in detail to the patient and the patient's girlfriend at length and all questions concerned answered, which he acknowledged and understand. In addition, the patient was also advised regarding his weight loss and the patient was advised once the patient is cleared by Vascular Surgery and Cardiology, the patient may seek a consultation with bariatric surgery and evaluation and recommendation. Dictated and electronically signed, not read. George Fuentes MD
--- NOTE | 2017-07-26 15:29 | CARD ---
APPROVED REPORT Protocol: LEXISCAN Test Type: Lexiscan Sestamibi Stress Test Attending Physician: Dr. Vidal Tavarez Referring Physician: Dr. George Fuentes Test Indications: Chest Pain Height:6 ft 3 in Weight:370lbs Medications: Aspirin, Lipitor, Lovenox, Lasix, Cozaar, Metoprolol, Potassium Medical History: 47 y/o male with a history of htn, new diabetes, chest pain Target HR: 172 bpm Resting ECG: normal Resting Heart Rate: 81 bpm Resting Blood Pressure: 156/100mmHg Submaximum (85%): 146 bpm PROCEDURE Pharmacologic stress testing was performed using 0.4mg per 5ml of regadenoson given intravenously over 7-10 seconds. POST EXERCISE Reason for Termination: Protocol completed Target HR: No Max HR: 86 bpm 58% of Maximum Predicted HR: 172 bpm Exercise duration: 05:07 min:sec, 0 Stage Exercise capacity: 1.0METs Max Blood Pressure: 156/100mmHg Blood Pressure response to exercise: normal resting BP - appropriate response Heart Rate response to exercise: appropriate Chest Pain: No, none Angina index: 0 Arrhythmia: No, none ST Change: No, none Deviation: 0 mm TEST SUMMARY [id number]/100.1. INFUSIONDOSE 101:[id number]/.0. INFUSIONDOSE 201:[id number]/90.0. INFUSIONDOSE 301:[id number]/90.0. INFUSIONDOSE 401:000.00.01.088/.1. INFUSIONDOSE 501:000.00.01.088/.1. INFUSIONDOSE 600:070.00.01.086/.1. INTERPRETATION Stress EKG Conclusion: Lexiscan performed without complications...nuclear results pending Signed by Vidal Tavarez Electronically Approved: 07/26/2017 08:13:14 EXAM: Myocardial Perfusion REST/STRESS 2 DAYS Stress Test Type: Pharmacologic Imaging Protocol Rest Spect myocardial perfusion imaging was performed in supine position 60 minutes following the injection of 30.5 mCi of Tc-99 Myoview. At peak stress, the patient was injected intravenously with 30.7mCi of Tc-99 tetrofosmin after an infusion time of 0 minutes and 10 seconds. Gated Stress Spect was performed 80 minutes after intravenous Tc-99 Myoview injection. The images were gated to evaluate regional wall motion and calculate ventricular ejection fraction.Images were reconstructed using backfilter projection method in short horizontal and verticle long axis. Spect slices were generated. LV Perfusion The quality of the study is good. The left ventricle is moderately enlarged in size. The right ventricle is unremarkable. The lung uptake is normal. The distribution of tracer reveals moderately and diffusely decreased perfusion in the inferior wall on the stress study. The remainder of the LV myocardium is unremarkable. The rest myocardial perfusion study shows no significant change. Wall Motion Wall motion study shows good contractility of the left ventricle. LVEF = 58%. Conclusion 1. Essentially normal SPECT myocardial perfusion study. 2. Fixed, inferior defect is most likely due to diaphrgmatic attenuation. 3. Normal gated wall motion and thicknening of the left ventricle.
--- NOTE | 2017-07-26 15:33 | CARD ---
APPROVED REPORT EKG Measurement Heart [id number] [place] [id number] <Conclusion> Normal sinus rhythm NSSTW changes Q in lll
--- NOTE | 2017-07-26 17:05 | MRI ---
PROCEDURE: MR CERVICAL SPINE WITHOUT CONTRAST HISTORY: ??CERVICAL RADICULOPATHY COMPARISON: None available. TECHNIQUE: Multiecho multiplanar sequences were performed through the cervical spine without the use of intravenous contrast. FINDINGS: Normal lordotic curvature. Craniocervical junction unremarkable. Vertebral body heights preserved. No marrow signal abnormality. Normal cervical cord. No paraspinal abnormality. C2-C3: No disc herniation, spinal canal stenosis or neural foraminal narrowing. C3-C4: There is foraminal stenosis on the right. C4-C5: No disc herniation, spinal canal stenosis or neural foraminal narrowing. C5-C6: There is an osteophytic ridge with bilateral foraminal stenosis severe on the left. There is mild central stenosis. C6-C7: Moderate to severe bilateral foraminal stenosis and mild central stenosis C7-T1: No disc herniation, spinal canal stenosis or neural foraminal narrowing. OTHER FINDINGS: None. IMPRESSION: Mild central stenosis and foraminal stenosis at C5-6 and C6-7
--- NOTE | 2017-07-26 17:15 | PN ---
DATE: 07/26/2017 SUBJECTIVE: The patient is a very pleasant 46-year-old man who was admitted for substernal chest pain. Routine showed widening mediasternum. Chest CT showed an ascending aortic aneurysm close to 5 cm. Echocardiogram showed no aortic insufficiency. 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 He was also informed of the indication for surgery for an ascending aortic aneurysm, which is size and aortic insufficiency. In the presence of coronary artery disease, aortic insufficiency could be detrimental. Ene Saxena MD MTDD
[2017-07-27] MEDS: Pantoprazole 40 mg EC Tab PO SCH (05:07)
[2017-07-27] MEDS: Enoxaparin 150 mg Syringe SC SCH (05:07)
[2017-07-27 06:02] VITALS: TEMP 97.8; O2SAT 98
[2017-07-27 06:37] LABS: BASO # 0.04 K/mm3 (0.0-2.0); BASO % 0.4 % (0.0-3.0); EOS # 0.4 (0.0-0.7); EOS % 4.7 % (1.5-5.0); GRAN # 5.04 (1.4-6.5); GRAN % 56.4 % (50.0-68.0); HEMOGLOBIN 15.7 g/dL (14.0-18.0); LYMPH # 2.8 (1.2-3.4); LYMPH % 31.5 % (22.0-35.0); MEAN CELL VOLUME 83.9 fl (80.0-105.0); MEAN CORPUSCULAR HEMOGLOBIN 29.1 pg (25.0-35.0); MEAN CORPUSCULAR HGB CONC 34.7 g/dl (31.0-37.0); MEAN PLATELET VOLUME 9.9 fl (7.0-11.0); MONO # 0.6 (0.1-0.6); RBC 5.4 10^6/uL (3.5-6.1); RED CELL DISTRIBUTION WIDTH 13.7 % (11.5-14.5)
[2017-07-27 07:01] LABS: ALB/GLOB RATIO 1.3 (1.1-1.8); ALBUMIN 4.1 g/dL (3.0-4.8); ALT/SGPT 40 U/L (7-56); AST/SGOT 26 U/L (17-59); BILIRUBIN,DIRECT 0.1 mg/dL (0.0-0.4); BLOOD UREA NITROGEN 19 mg/dL (7-21); GFR AFRICAN-AMERICAN > 60; GFR NON-AFRICAN AMERICAN > 60
--- NOTE | 2017-07-27 07:35 | CP.PCM.PN ---
Subjective - Date & Time of Evaluation Date of Evaluation: 07/27/17 Time of Evaluation: 07:00 - Subjective Subjective: Vascular surgery note for Dr. Saxena Patient seen and examined at bedside. No acute event event. Patient has no complaints. He is tolerating diet and having BMs. Objective - Vital Signs/Intake and Output Vital Signs (last 24 hours): Temp Pulse Resp BP Pulse Ox 97.8 F 79 20 153/98 H 98 07/27/17 06:00 07/27/17 06:00 07/27/17 06:00 07/27/17 06:00 07/27/17 06:00 Intake and Output: 07/27/17 07/27/17 06:59 18:59 Intake Total 360 Balance 360 - Medications Medications: Current Medications Aspirin (Ecotrin) 325 mg PO DAILY [facility] Last Admin: 07/26/17 10:01 Dose: 325 mg Atorvastatin Calcium (Lipitor) 40 mg PO DAILY [facility] Last Admin: 07/26/17 10:01 Dose: 40 mg Enoxaparin Sodium (Lovenox) 150 mg SC Q12H [facility] PRN Reason: Protocol Last Admin: 07/27/17 05:07 Dose: 150 mg Furosemide (Lasix) 40 mg IVP DAILY [facility] Last Admin: 07/26/17 10:00 Dose: 40 mg Hydralazine HCl (Apresoline) 10 mg IVP Q6 PRN PRN Reason: FORSBP>=170MMHG&/ORDBP>=95MMHG Insulin Human Lispro (Humalog Med) 0 units SC AC [facility] PRN Reason: Protocol Last Admin: 07/26/17 17:32 Dose: Not Given Losartan Potassium (Cozaar) 100 mg PO DAILY [facility] Last Admin: 07/26/17 11:44 Dose: 100 mg Metoprolol Tartrate (Lopressor) 25 mg PO BID [facility] Last Admin: 07/26/17 17:40 Dose: 25 mg Pantoprazole Sodium (Protonix Ec Tab) 40 mg PO 0600,1600 [facility] Last Admin: 07/27/17 05:07 Dose: 40 mg Potassium Chloride (Klor-Con 10) 10 meq PO DAILY [facility] Last Admin: 07/26/17 10:01 Dose: 10 meq - Labs Labs: 07/27/17 05:30 07/27/17 05:30 PT 11.3 SECONDS (9.4-12.5) 07/25/17 05:00 INR 0.98 (0.93-1.08) 07/25/17 05:00 APTT 31.1 Seconds (25.1-36.5) 07/25/17 05:00 - Additional Findings Additional findings: - Constitutional Appears: Non-toxic, No Acute Distress - Head Exam Head Exam: ATRAUMATIC, NORMAL INSPECTION, NORMOCEPHALIC - Eye Exam Eye Exam: EOMI, Normal appearance - ENT Exam ENT Exam: Mucous Membranes Moist, Normal Exam - Neck Exam Neck Exam: Full ROM, Normal Inspection - Respiratory Exam Respiratory Exam: NORMAL BREATHING PATTERN - Cardiovascular Exam Cardiovascular Exam: REGULAR RHYTHM, +S1, +S2 - GI/Abdominal Exam GI & Abdominal Exam: Soft. absent: Distended (morbidly obese), Firm, Guarding, Rigid, Tenderness - Extremities Exam Extremities Exam: Normal Inspection. absent: Pedal Edema - Neurological Exam Neurological Exam: Alert, Awake, CN II-XII Intact, Oriented x3 - Psychiatric Exam Psychiatric exam: Normal Affect, Normal Mood - Skin Skin Exam: Dry, Intact, Normal Color, Warm Assessment and Plan - Assessment and Plan (Free Text) Assessment: 47M w/incidental finding of TAAA 4.8 cm x 4.6 cm & DVT in R distal femoral/ popliteal vein Plan: Cont therapeutic anticoagulation No surigical intervention at this time Will need to montior with imaging as outpatient Discussed with Dr. Hemanth De La Cruz PGY1
[2017-07-27] MEDS: Insulin Lispro (humaLOG) MEDIUM Coverage SC SCH ×2 (08:20→11:58)
--- NOTE | 2017-07-27 08:56 | PN ---
DATE: 07/27/2017 CARDIOLOGY FOLLOWUP SUBJECTIVE: The patient is chest pain free. PHYSICAL EXAMINATION VITAL SIGNS: Blood pressure is 153/98, the heart rate is in the 70s. NECK: Negative JVD. LUNGS: Without rales. HEART: Reveals S1 and S2. EXTREMITIES: Without edema. LABORATORY DATA: Glucose is 144. The troponins are negative. Lexiscan stress test reveals no ischemia, LV function is normal. The CT scan reveals a dilated ascending aorta. IMPRESSION: 1. Chest pain with no acute coronary syndrome. 2. Normal stress test. 3. Hypertension. 4. Diabetes mellitus. 5. Obesity. 6. Dilated ascending aorta. PLAN: Given these findings, the patient's treatment should be a strict cardiac risk reduction program. We will add a beta [place] to his regimen. His blood pressure needs to be controlled strictly. I have discussed this with the patient in detail. Vidal Tavarez MD
[2017-07-27] MEDS: Potassium Chloride 10 mEq ER Tab PO SCH (09:08)
[2017-07-27] MEDS: Aspirin 325 mg EC Tablets PO SCH (09:08)
[2017-07-27 09:10] VITALS: BP 149/101; PULSE 75
--- NOTE | 2017-07-27 11:58 | CARD ---
APPROVED REPORT EXAM: Two-dimensional and M-mode echocardiogram with Doppler and color Doppler. Other Information Quality : AverageRhythm : INDICATION Hypertension/HCVD Chest Pain 2D DIMENSIONS Left Atrium (2D)4.0 (1.6-4.0cm)IVSd1.2 (0.7-1.1cm) LVDd5.1 (3.9-5.9cm)PWd1.2 (0.7-1.1cm) LVDs3.6 (2.5-4.0cm)FS (%) 30.6 % LVEF (%)58.0 (>50%) M-Mode DIMENSIONS Aortic Root3.90 (2.2-3.7cm)Aortic Cusp Exc.2.40 (1.5-2.0cm) Aortic Valve AoV Peak Tlibdacw048.0cm/s Mitral Valve MV E Ynvtwtnb04.6cm/sMV A Deopxiib34.8cm/sE/A ratio1.1 TDI E/Lateral E'0.0E/Medial E'0.0 Tricuspid Valve TR Peak [id number]/sRAP [id number] Peak Gr.7mmHg POSP12smTm LEFT VENTRICLE The left ventricle is normal size. There is mild concentric left ventricular hypertrophy. The left ventricular function is normal. The left ventricular ejection fraction is within the normal range. There is normal LV segmental wall motion. RIGHT VENTRICLE The right ventricle is normal size. ATRIA The left atrium size is normal. The right atrium size is normal. The interatrial septum is intact with no evidence for an atrial septal defect. AORTIC VALVE The aortic valve is normal in structure. MITRAL VALVE The mitral valve is normal in structure. Mitral regurgitation is trace. TRICUSPID VALVE The tricuspid valve is normal in structure. There is trace tricuspid regurgitation. PULMONIC VALVE The pulmonic valve is not well visualized. GREAT VESSELS The aortic root is normal in size. PERICARDIAL EFFUSION There is no pericardial effusion. <Conclusion> The left ventricle is normal size. There is mild concentric left ventricular hypertrophy. The left ventricular function is normal.
--- NOTE | 2017-07-27 13:00 | CARD ---
APPROVED REPORT EKG Measurement Heart [id number] <Conclusion> Normal sinus rhythm NSSTW changes Q in 3 No change
--- NOTE | 2017-07-28 17:52 | DS ---
LOCATION: The patient is seen in room 268, bed 2. SUBJECTIVE: Patient is out of bed to chair. Overnight nurse's notes were reviewed. Patient slept well during the night. No adverse events were documented. Patient denies any chest pain. Patient denies any nausea, vomiting, diarrhea, or constipation. Denies hemoptysis. Denies trouble breathing. OBJECTIVE: VITAL SIGNS: T-max 98.2. Telemetry shows sinus rhythm. Heart rate 77, 73, 79, 84. Blood pressure 149/88, 154/98. Respirations 20. O2 sat 98% to 100%. HEENT: Head examination, normocephalic and atraumatic. HEENT examination shows pink conjunctivae. Anicteric sclerae. No oropharyngeal lesion. No neck rigidity. CHEST: Kyphosis. LUNGS: Shows no rales, crackles or wheezing. CARDIOVASCULAR: S1, S2. Regular rhythm. Question soft systolic murmur in the left sternal border, right second intercostal space, left second intercostal space. ABDOMEN: Soft, obese, protuberant. Positive bowel sounds. GENITALIA: Male. RECTAL: Deferred. EXTREMITIES: Shows complete resolution of the ankle and leg swelling and edema. MUSCULOSKELETAL: Shows a body mass index of 47.5. NEUROLOGIC: Patient is alert, awake, and oriented x3. Cranial nerves II through XII intact. Gait examination is not tested. VASCULAR: Palpable pulses. PSYCHIATRIC: Not applicable. DIAGNOSTIC DATA: On 07/27/2017: WBC 9, hemoglobin and hematocrit 15.7 and 45.3, platelets 221. PT/PTT is normal. Chemistry: Sodium 142; potassium 3.9; chloride 101; CO2 28; anion gap 17; BUN 19; creatinine 0.9; GFR greater than 60; glucose 122, 144, 161, 139; calcium 9; phosphorus 3.1; magnesium 1.8. LFTs are normal. Troponin all three sets are negative. Urinalysis was reviewed. Urine drug screen is negative. Hepatitis A, B, C serologies and HIV negative. Microbiology negative. Patient had an MRI of the cervical spine shows right C3-C4 foramen stenosis, mild central stenosis of the C5-C6 with osteophytic ridge with bilateral foramen stenosis, severe on the left. C6-C7 [id number] bilateral foramen stenosis and central stenosis. Stress test results were reviewed. Nuclear stress test shows normal wall motion, normal contractility. Left ventricular ejection fraction of 50%, fixed inferior defect due to diaphragmatic attenuation. Echocardiogram was done today which showed ejection fraction of 58%. Concentric left ventricular hypertrophy. Trace mitral regurgitation. Trace tricuspid regurgitation. EKG shows sinus rhythm. Q-wave in III. FINAL IMPRESSION, PLAN AND DISCHARGE DIAGNOSES: 1. Chest pain, etiology undetermined. 2. Super morbid obesity with elevated body mass index of greater than 47. 3. New-onset type 2 [id number] diabetes mellitus with hyperglycemia and elevated hemoglobin A1c of greater than 7. 4. Status post uncontrolled hypertension. 5. Hypertriglyceridemia with elevated low-density lipoprotein. 6. Uncontrolled diabetes mellitus with hemoglobin A1c of 7.2. 7. Trace proteinuria, glycosuria and bacteriuria. 8. Left ventricular ejection fraction of 58% on echocardiogram with concentric left ventricular hypertrophy. 9. Trace mitral and trace tricuspid regurgitation. 10. Fixed inferior defect on the nuclear stress test with normal gated wall motion and normal wall motion and contractility with left ventricular ejection fraction of 58%. 11. Multilevel cervical spine degenerative joint disease with foramen stenosis, central canal stenosis, disk osteophyte ridge, bilateral foramen stenosis. 12. Inferior lingular linear atelectasis. 13. A 4.8 x 4.6 cm ascending aortic aneurysm. Patient was cleared by Cardiology and Vascular Surgery. Patient was advised close followup with the Vascular Surgery for his ascending aortic aneurysm. Patient is cleared . PATIENT'S DISCHARGED MEDICATIONS: Norvasc 5 mg daily, Eliquis 10 mg twice a day for 7 days and Eliquis 5 mg twice a day to be maintained, Ecotrin 81 mg daily, Lipitor 40 mg daily, Hyzaar 100/25 once a day, metformin 1000 mg twice a day, Lopressor 25 mg twice a day, Protonix 40 mg daily. DISCHARGE INSTRUCTIONS: . DISCHARGE FOLLOWUP: With Dr. Fuentes within 1 week, Dr. Tavarez and Dr. Saxena. Patient is discharged home with discharge followup in one week with Dr. Fuentes. Patient was advised fingerstick blood sugar before meals and at bedtime with the Glucometer provided. Patient was advised outpatient vascular followup. Patient was advised weight loss. Patient was advised outpatient followup for Bariatric Surgery evaluation and consultation. Time spent in the entire discharge process more than 45 minutes. Dictated and electronically signed, not read. George MD Gina
[2017-07-28 21:44] LABS: PLASMINOGEN ACTIVITY 128 % (65-176)
[2017-07-29 04:30] LABS: CARDIOLIPIN AB (IGA) <11 APL (<=11); CARDIOLIPIN AB (IGG) <14 GPL (<=14)
[2017-07-29 06:22] LABS: CARDIOLIPIN AB (IGM) <12 MPL (<=12); PHOSPHATIDYLSERINE AB IGA <20 U/mL (<20); PHOSPHATIDYLSERINE AB IGG <10 U/mL (<10); PHOSPHATIDYLSERINE AB IGM <25 U/mL (<25)
== END 2017-07-27 15:02 | disposition home or self-care (01) | DRG 311 ==
LOC: ED 04:30 → ERH 06:17 → MERGE 06:17 → ERH 11:14 → 2RNO 14:40 → OBSVTOIN 07-26 11:14 → 5RSO 07-27 09:46
PROVIDERS: ADMIT Internal Medicine; ATTEND Internal Medicine
DX: I20.9 Angina pectoris, unspecified (principal); Z68.42 Body mass index [BMI] 45.0-49.9, adult; J98.11 Atelectasis; I82.411 Acute embolism and thrombosis of right femoral vein; I82.431 Acute embolism and thrombosis of right popliteal vein; R20.2 Paresthesia of skin; E11.65 Type 2 diabetes mellitus with hyperglycemia; E78.1 Pure hyperglyceridemia; I71.2 Thoracic aortic aneurysm, without rupture; I11.9 Hypertensive heart disease without heart failure; E88.81 Metabolic syndrome and other insulin resistance; E66.01 Morbid (severe) obesity due to excess calories; F17.220 Nicotine dependence, chewing tobacco, uncomplicated; Z82.49 Family history of ischemic heart disease and other diseases of the circulatory system